=== PATIENT | female | born 1960 | race Two or more races ===

== ENCOUNTER 2016-10-25 12:59 | Emergency (ER) | payer MEDICAID ==
[~2016-10-25] VITALS: Ht 162.6 cm; Wt 58.1 kg
[2016-10-25] MEDS ORDERED: IPRATROPIUM BROM 0.5 MG/2.5ML INH SOL NEB ONE (13:15)
[2016-10-25] MEDS ORDERED: HYDROcodone-ACET 5/325MG TAB PO ONE (13:15)
[2016-10-25] MEDS ORDERED: methylPREDNISolone SOD SUCC 125 MG/2 ML VL IM ONE (13:15)
[2016-10-25] MEDS ORDERED: ALBUTEROL SULF 2.5 MG/0.5ML(0.5%) NEB SOLN NEB ONE (13:15)
[2016-10-25 13:36] LABS: Basophils # (auto) 0 uL; Basophils % (auto) 0.4 % (0.0-2.0); Eosinophils # (auto) 0.2 uL; Hematocrit 40.6 % (36.0-46.0); Hemoglobin 13.3 g/dL (12.2-16.2); Lymphocytes # (auto) 1.8 uL; Lymphocytes % (auto) 20.6 % (10.0-50.0); Mean Corpuscular Hemoglobin 29.3 pg (28.0-32.0); Mean Corpuscular Hgb Conc. 32.7 g/dL (32.0-36.0); Mean Corpuscular Volume 89.7 fL (80.0-100.0); Mean Platelet Volume 7.9 fL (7.4-10.4); Monocytes # (auto) 0.3 uL; Monocytes % (auto) 3.9 % (0.0-12.0); Neutrophils # (auto) 6.5 uL; Neutrophils % (auto) 73.1 % (37.0-80.0); Platelet Count (auto) 294 10^3/uL (140-450); Red Cell Distribution Width 13.9 % (11.6-16.0); White Blood Cell 8.9 10^3/uL (4.4-10.8)
[2016-10-25 14:01] LABS: Albumin 3.9 g/dL (3.4-5.0); BUN/Creatinine Ratio 18.8; Bilirubin, Total 0.5 mg/dL (0.2-1.0); Calcium 8.9 mg/dL (8.5-10.1); Potassium 3.8 mmol/L (3.5-5.1); Total Protein 6.5 g/dL (6.4-8.2)
[2016-10-25 15:45] LABS: Urine Bilirubin Negative (Negative); Urine Blood Negative /uL (Negative); Urine Color Yellow (Yellow); Urine Glucose Normal (Normal); Urine Ketone Negative (Negative); Urine Nitrite Negative (Negative); Urine RBC <1 /hpf (0 - 4); Urine Squamous Epithelial Cell FEW /hpf (<5); Urine Urobilinogen Normal (Negative)
[2016-10-25 16:52] VITALS: BP 110/63
== END 2016-10-25 16:53 | disposition home or self-care (01) ==
LOC: ER 13:01
DX: S29.011A Strain of muscle and tendon of front wall of thorax, initial encounter (principal); R51 Headache; M54.2 Cervicalgia; J44.9 Chronic obstructive pulmonary disease, unspecified; W01.198A Fall on same level from slipping, tripping and stumbling with subsequent striking against other object, initial encounter; Y93.89 Activity, other specified; Y99.8 Other external cause status; Y92.091 Bathroom in other non-institutional residence as the place of occurrence of the external cause
CPT/HCPCS: 36415; 70450; 71111; 72125; 80053; 81001; 85025; 94640; 96372; 99285; J2930

== ENCOUNTER → 2017-01-10 | Emergency (ER) | payer MEDICAID | END | disposition left against medical advice (07) | LOC: ER 04:02 | DX: R05 Cough (principal); Z53.21 Procedure and treatment not carried out due to patient leaving prior to being seen by health care provider ==

== ENCOUNTER 2022-10-04 16:46 | Emergency (ER) | payer MEDICAID ==
[~2022-10-04] VITALS: Ht 162.6 cm; Wt 53.1 kg
[2022-10-04 18:43] LABS: Basophils # (auto) 0.1 10 ^3/uL (0-0.2); Basophils % (auto) 0.8 % (0.0-2.0); Eosinophils # (auto) 0.3 10 ^3/uL (0-0.8); Eosinophils % (auto) 3.8 % (0.0-7.0); Hemoglobin 11.8 g/dL (12.2-16.2); Lymphocytes # (auto) 1.7 10 ^3/uL (0.4-5.4); Lymphocytes % (auto) 21.7 % (10.0-50.0); Mean Corpuscular Hemoglobin 28.6 pg (28.0-32.0); Mean Corpuscular Hgb Conc. 32.8 g/dL (32.0-36.0); Mean Corpuscular Volume 87.3 fL (80.0-100.0); Monocytes # (auto) 0.5 10 ^3/uL (0-1.3); Monocytes % (auto) 5.7 % (0.0-12.0); Neutrophils # (auto) 5.4 10 ^3/uL (1.6-8.6); Red Blood Cells 4.12 10^6/uL (4.0-5.20); Red Cell Distribution Width 16.6 % (11.8-14.3)
[2022-10-04 19:01] LABS: Albumin 3.4 g/dL (3.4-5.0); BUN/Creatinine Ratio 27.2; Calcium 9.8 mg/dL (8.5-10.1); Potassium 4.4 mmol/L (3.5-5.1)
[2022-10-04 19:04] LABS: Bilirubin, Total 0.4 mg/dL (0.2-1.0); Total Protein 7.3 g/dL (6.4-8.2)
[2022-10-04] MEDS ORDERED: CEPH-510 PO (21:06)
[2022-10-04] MEDS ORDERED: CLIN300C8 PO (21:06)
[2022-10-04 21:20] VITALS: BP 122/79
== END 2022-10-04 21:28 | disposition home or self-care (01) ==
LOC: ER 16:46
DX: L03.115 Cellulitis of right lower limb (principal); J44.9 Chronic obstructive pulmonary disease, unspecified
CPT/HCPCS: 36415; 80053; 85025; 87040

== ENCOUNTER 2023-01-05 10:38 | Emergency (ER) | payer MEDICAID ==
[~2023-01-05] VITALS: Ht 162.6 cm; Wt 50.0 kg
[~2023-01-05 10:38] MED LIST: CEPH-510 PO; CLIN300C8 PO
[2023-01-05 11:30] VITALS: BP 123/60
[2023-01-05] MEDS ORDERED: CEPH-510 PO (12:45)
== END 2023-01-05 12:54 | disposition home or self-care (01) ==
LOC: ER 10:38
DX: K94.20 Gastrostomy complication, unspecified (principal); J44.9 Chronic obstructive pulmonary disease, unspecified; Z48.00 Encounter for change or removal of nonsurgical wound dressing; Z88.6 Allergy status to analgesic agent; Z88.8 Allergy status to other drugs, medicaments and biological substances; Z90.49 Acquired absence of other specified parts of digestive tract

== ENCOUNTER 2023-07-09 04:45 | Emergency (ER) | payer OTHER, MEDICAID ==
[~2023-07-09] VITALS: Ht 162.6 cm; Wt 45.9 kg
[~2023-07-09 04:45] MED LIST changes: +CLIN300C70 PO; -CLIN300C8 PO
[2023-07-09] MEDS ORDERED: MORPHINE SULFATE INJ 2 MG/ml SYRG IM ONE (05:45)
[2023-07-09] MEDS ORDERED: ONDANSETRON HCL 4 MG/2 ML VIAL IM ONE (05:45)
[2023-07-09] MEDS ORDERED: GASTROGRAFIN 30 ML SOL ONE (05:52)
[2023-07-09 06:46] VITALS: TEMP 98; O2SAT 98
[2023-07-09 06:47] VITALS: BP 92/54; PULSE 61; RESP 17
== END 2023-07-09 06:47 | disposition home or self-care (01) ==
LOC: ER 04:45
DX: K21.9 Gastro-esophageal reflux disease without esophagitis (principal); E78.5 Hyperlipidemia, unspecified; J44.9 Chronic obstructive pulmonary disease, unspecified; Z43.1 Encounter for attention to gastrostomy; Z88.6 Allergy status to analgesic agent; Z88.8 Allergy status to other drugs, medicaments and biological substances; Z88.2 Allergy status to sulfonamides; Z91.011 Allergy to milk products
CPT/HCPCS: 43762; 74018; 96372; 99284; J2270; J2405; Q9963

== ENCOUNTER 2023-11-11 03:52 | Inpatient (IN) | payer BC, MEDICAID ==
[~2023-11-11] VITALS: Ht 162.6 cm; Wt 47.9 kg
[2023-11-11 04:53] VITALS: PULSE 69; RESP 13; O2SAT 95
[2023-11-11] MEDS ORDERED: SODIUM CHLORIDE 0.9% 1,000 ML IV ONE (05:10)
[2023-11-11] MEDS ORDERED: SODIUM CHLORIDE 0.9% 1,000 ML IVB ONE (07:15)
[2023-11-11 08:00] VITALS: PULSE 59; RESP 9; O2SAT 92
[2023-11-11] MEDS ORDERED: ACETAMINOPHEN IV 1000 MG/100ML (10MG/ML) IV ONE (08:00)
[2023-11-11 08:06] LABS: Basophils # (auto) 0.1 10 ^3/uL (0-0.2); Basophils % (auto) 0.8 % (0.0-2.0); Eosinophils # (auto) 0.7 10 ^3/uL (0-0.8); Eosinophils % (auto) 11.4 % (0.0-7.0); Hematocrit 32.3 % (36.0-46.0); Hemoglobin 10.4 g/dL (12.2-16.2); Lymphocytes # (auto) 1.2 10 ^3/uL (0.4-5.4); Lymphocytes % (auto) 19.5 % (10.0-50.0); Mean Corpuscular Hemoglobin 28.9 pg (28.0-32.0); Mean Corpuscular Hgb Conc. 32.2 g/dL (32.0-36.0); Mean Corpuscular Volume 89.8 fL (80.0-100.0); Monocytes # (auto) 0.3 10 ^3/uL (0-1.3); Monocytes % (auto) 5.1 % (0.0-12.0); Neutrophils % (auto) 63.2 % (37.0-80.0); Nucleated Red Blood Cells % 0.1 %; Red Cell Distribution Width 14.7 % (11.8-14.3); White Blood Cell 6.3 10^3/uL (4.4-10.8)
[2023-11-11 08:22] LABS: INR 1.04 (0.9-1.15); Partial Thromboplastin Time 26.4 SEC (24.5-34.5); Prothrombin Time 10.9 sec (9.3-11.8)
[2023-11-11 08:23] LABS: Alanine Aminotransferase 12 U/L (7-40); Albumin 3.3 g/dL (3.2-4.8); Alkaline Phosphatase 73 U/L (46-116); Anion Gap 4 (5-15); Aspartate Aminotransferase 30 U/L (13-40); BUN/Creatinine Ratio 16.5 (10.0-20.0); Bilirubin, Total 0.4 mg/dL (0.2-1.0); Blood Urea Nitrogen 18 mg/dL (9-23); Calcium 8.9 mg/dL (8.5-10.1); Carbon Dioxide 30 mmol/L (20-30); Chloride 106 mmol/L (98-107); Glucose 80 mg/dL (74-106); Potassium 3.6 mmol/L (3.5-5.1); Sodium 140 mmol/L (136-145); Total Protein 5.5 g/dL (5.7-8.2)
[2023-11-11 09:03] LABS: Magnesium 1.8 mg/dL (1.6-2.6)
[2023-11-11] MEDS: FUROSEMIDE 20 MG/2 ML VIAL IV ONE ×2 (09:23→10:54)
[2023-11-11] MEDS ORDERED: MORPHINE SULFATE INJ 2 MG/ml SYRG IV PRN (10:00)
[2023-11-11] MEDS ORDERED: DEXTROSE (50%) 50ML SYRG IV PRN (10:00)
[2023-11-11] MEDS ORDERED: MORPHINE SULFATE 4 MG/ML SYR/VIAL IV PRN (10:00)
[2023-11-11] MEDS ORDERED: NITROGLYCERIN 0.4 MG SL TAB SL PRN (10:00)
[2023-11-11] MEDS ORDERED: hydrALAZINE HCL 20 MG/ML VL IV PRN (10:00)
[2023-11-11] MEDS ORDERED: PROMETHAZINE HCL 25 MG/ML 1ML IV PRN (10:00)
[2023-11-11] MEDS: FAMOTIDINE (10MG/ML) 2ML VL IV SCH (11:30)
[2023-11-11] MEDS: D5W/SOD CHL 0.2% 1,000 ML IV SCH (11:30)
[2023-11-11 11:36] LABS: COVID19 ANTIGEN SOFIA FIA NEGATIVE (NEGATIVE)
[2023-11-11 11:37] LABS: Rapid Influenza A Negative (Negative); Rapid Influenza B Negative (Negative)
[2023-11-11] MEDS: ACCU-CHEK COMFORT CURVE STRIP VI SCH ×2 (12:56→18:18)
[2023-11-11] MEDS: InsuLIN REG 1unit/0.01ml Soln (100units/ml) SC SCH ×2 (12:56→18:00)
[2023-11-11 13:14] LABS: Urine Bacteria NONE SEEN /hpf (None Seen); Urine Blood Negative /uL (Negative); Urine Clarity Clear (Clear); Urine Protein, UAD Negative (Negative); Urine Specific Gravity 1.006 (1.001-1.035); Urine Urobilinogen Normal (Negative); Urine WBC None Seen /hpf (0 - 5)
[2023-11-11 13:16] LABS: Urine Color Yellow (Yellow)
[2023-11-11 13:25] LABS: Amphetamine Screen, Urine Neg (NEGATIVE); Barbiturate Scree,Urine Neg (NEGATIVE); Benzodiazephine Screen, Urine Neg (NEGATIVE); Cannabinoid Screen, Urine Neg (NEGATIVE); Cocaine Screen, Urine Neg (NEGATIVE); Opiate Scree,Urine Neg (NEGATIVE); Phencyclidine Screen, Urine Neg (NEGATIVE)
[2023-11-11] MEDS: MORPHINE SULFATE INJ 2 MG/ml SYRG IV PRN (15:57)
[2023-11-11 17:56] VITALS: BP 99/42; PULSE 60; RESP 17; TEMP 98.2; O2SAT 94
[2023-11-11] MEDS ORDERED: LEVO112T4 PO (18:36)
[2023-11-11] MEDS ORDERED: ATOR10TA52 PO (18:37)
[2023-11-11] MEDS ORDERED: AMIT10TA10 PO (18:38)
[2023-11-11] MEDS ORDERED: OXYC-963 PO (18:40)
[2023-11-11 22:00] VITALS: BP 101/36; PULSE 63; RESP 20; TEMP 98.2; O2SAT 92
[2023-11-11] MEDS: AMITRIPTYLINE HCL 25 MG TAB PO SCH (22:07)
[2023-11-12] VITALS (10 sets, daily range): BP systolic 94–113; BP diastolic 44–59; PULSE 64–81; RESP 16–20; TEMP 97.5–98.2; O2SAT 90–99
[2023-11-12] MEDS: ACCU-CHEK COMFORT CURVE STRIP VI SCH ×5 (01:59→23:58)
[2023-11-12] MEDS: InsuLIN REG 1unit/0.01ml Soln (100units/ml) SC SCH ×5 (02:02→23:58)
[2023-11-12] MEDS: D5W/SOD CHL 0.2% 1,000 ML IV SCH (06:11)
[2023-11-12] MEDS: MORPHINE SULFATE INJ 2 MG/ml SYRG IV PRN ×2 (08:41→14:42)
[2023-11-12] MEDS: LEVOTHYROXINE SODIUM 100 MCG/5 ML INJ IV SCH (10:19)
[2023-11-12] MEDS: FAMOTIDINE (10MG/ML) 2ML VL IV SCH (10:19)
[2023-11-12] MEDS ORDERED: ALBUTEROL SULF 2.5 MG/0.5ML(0.5%) NEB SOLN NEB PRN (11:00)
[2023-11-12] MEDS ORDERED: ALBUTEROL SULF 2.5 MG/0.5ML(0.5%) NEB SOLN ONE (11:02)
[2023-11-12] MEDS: AMITRIPTYLINE HCL 25 MG TAB PO SCH (22:28)
[2023-11-13] VITALS (7 sets, daily range): BP systolic 104–134; BP diastolic 35–66; PULSE 63–79; RESP 16–18; TEMP 97.6–97.7; O2SAT 93–99
[2023-11-13] MEDS: D5W/SOD CHL 0.2% 1,000 ML IV SCH (02:11)
[2023-11-13] MEDS: ACCU-CHEK COMFORT CURVE STRIP VI SCH ×3 (06:31→18:00)
[2023-11-13] MEDS: InsuLIN REG 1unit/0.01ml Soln (100units/ml) SC SCH ×3 (06:31→18:00)
[2023-11-13] MEDS: FAMOTIDINE (10MG/ML) 2ML VL IV SCH (10:10)
[2023-11-13] MEDS: LEVOTHYROXINE SODIUM 100 MCG/5 ML INJ IV SCH (10:10)
[2023-11-13] MEDS: MORPHINE SULFATE INJ 2 MG/ml SYRG IV PRN ×2 (10:19→16:26)
[2023-11-13] MEDS ORDERED: fentaNYL CITRATE 100 MCG/2 ML VL ONE (13:25)
[2023-11-13] MEDS ORDERED: MIDAZOLAM HCL 2MG/2ML 2ml VIAL (1mg/ml) ONE (13:26)
[2023-11-13] MEDS ORDERED: LIDOCAINE 2%HCL (LOCAL ANESTH.) INJ 20ML MDV ONE (13:42)
== END 2023-11-13 19:30 | disposition home or self-care (01) | DRG 312 ==
LOC: ER 03:52 → OVERFLOW 09:49 → CENTRAL 17:36
PROVIDERS: ADMIT Hospitalist; ATTEND Hospitalist
PROC: 0DPDXUZ Removal of Feeding Device from Lower Intestinal Tract, External Approach (ICD-10-PCS; principal; 2023-11-13)
PROC: 0DHA3UZ Insertion of Feeding Device into Jejunum, Percutaneous Approach (ICD-10-PCS; 2023-11-13)
DX: I95.2 Hypotension due to drugs (principal); K94.23 Gastrostomy malfunction; C14.0 Malignant neoplasm of pharynx, unspecified; E03.9 Hypothyroidism, unspecified; C02.9 Malignant neoplasm of tongue, unspecified; K21.9 Gastro-esophageal reflux disease without esophagitis; E78.5 Hyperlipidemia, unspecified; Z20.822 Contact with and (suspected) exposure to COVID-19; J44.9 Chronic obstructive pulmonary disease, unspecified; Z92.3 Personal history of irradiation; Z82.49 Family history of ischemic heart disease and other diseases of the circulatory system; Z88.2 Allergy status to sulfonamides; Z88.7 Allergy status to serum and vaccine; Z88.8 Allergy status to other drugs, medicaments and biological substances; Z91.011 Allergy to milk products; Z79.899 Other long term (current) drug therapy; Z90.49 Acquired absence of other specified parts of digestive tract; T45.1X5A Adverse effect of antineoplastic and immunosuppressive drugs, initial encounter
CPT/HCPCS: 36415; 70450; 71045; 75984; 80053; 80307; 81001; 82962; 83735; 83880; 84484; 85025; 85610; 85730; 87426; 87804; 93005; 94640; 97163; 99152; G0378; J0131; J2250; J3490

== ENCOUNTER 2024-07-20 08:56 | Inpatient (IN) | payer BC, MEDICAID ==
[2024-07-20] VITALS (10 sets, daily range): BP systolic 96–108; BP diastolic 40–45; PULSE 69–85; RESP 12–19; TEMP 98.1–98.3; O2SAT 92–98
[~2024-07-20] VITALS: Ht 157.5 cm; Wt 40.6 kg
[~2024-07-20 08:56] MED LIST changes: +AMIT-400 PO; +ATOR10TA52 PO; -CEPH-510 PO; -CLIN300C70 PO; +LEVO112T4 PO; +OXYC-963 PO
[2024-07-20] MEDS ORDERED: methylPREDNISolone SOD SUCC 125 MG/2 ML VL IM ONE (09:30)
[2024-07-20 10:25] LABS: Basophils # (auto) 0 10 ^3/uL (0-0.2); Basophils % (auto) 0.2 % (0.0-2.0); Eosinophils # (auto) 0.1 10 ^3/uL (0-0.8); Eosinophils % (auto) 1.1 % (0.0-7.0); Hematocrit 38.2 % (36.0-46.0); Mean Corpuscular Hemoglobin 30.6 pg (28.0-32.0); Mean Corpuscular Hgb Conc. 34.1 g/dL (32.0-36.0); Mean Corpuscular Volume 89.8 fL (80.0-100.0); Monocytes # (auto) 0.7 10 ^3/uL (0-1.3); Monocytes % (auto) 6.7 % (0.0-12.0); Neutrophils # (auto) 8.9 10 ^3/uL (1.6-8.6); Platelet Count (auto) 268 10^3/uL (140-450); Red Blood Cells 4.25 10^6/uL (4.0-5.20); Red Cell Distribution Width 16.3 % (11.8-14.3); White Blood Cell 10.7 10^3/uL (4.4-10.8)
[2024-07-20] MEDS: methylPREDNISolone SOD SUCC 125 MG/2 ML VL IV ONE (10:26)
[2024-07-20] MEDS: ALBUTEROL SULF 2.5 MG/0.5ML(0.5%) NEB SOLN NEB ONE (10:31)
[2024-07-20 10:47] LABS: Alanine Aminotransferase 12 U/L (7-40); Albumin 3.9 g/dL (3.2-4.8); Alkaline Phosphatase 81 U/L (46-116); Anion Gap 4 (5-15); Aspartate Aminotransferase 20 U/L (13-40); BUN/Creatinine Ratio 27.3 (10.0-20.0); Blood Urea Nitrogen 18 mg/dL (9-23); Calcium 9.6 mg/dL (8.7-10.4); Carbon Dioxide 23 mmol/L (20-31); Chloride 112 mmol/L (98-107); Glucose 100 mg/dL (74-106); Potassium 3.4 mmol/L (3.5-5.1); Sodium 139 mmol/L (136-145)
[2024-07-20 10:48] LABS: Bilirubin, Total 0.5 mg/dL (0.2-1.0); Total Protein 6.5 g/dL (5.7-8.2)
[2024-07-20] MEDS: AZITHROMYCIN 500MG/ 250ML 250 ML IV ONE (11:42)
[2024-07-20] MEDS ORDERED: MORPHINE SULFATE INJ 2 MG/ml SYRG IV PRN (12:30)
[2024-07-20] MEDS ORDERED: NITROGLYCERIN 0.4 MG SL TAB SL PRN (12:30)
[2024-07-20] MEDS: cefTRIAXone 1GM/50ML D5W 50 ML IV ONE (12:52)
[2024-07-20] MEDS: oxyCODONE ER 10 MG TAB PO ONE (12:52)
[2024-07-20] MEDS: methylPREDNISolone SOD SUCC 40 MG/ML VL IV SCH (18:44)
[2024-07-20] MEDS: ALBUTEROL SULF 2.5 MG/0.5ML(0.5%) NEB SOLN NEB SCH (18:48)
[2024-07-20] MEDS: IPRATROPIUM BROM 0.5 MG/2.5ML INH SOL NEB SCH (18:48)
[2024-07-20] MEDS: ACETYLCYSTEINE 20%(200MG/ML) SOL 4ML NEB SCH (18:48)
[2024-07-20] MEDS: AMITRIPTYLINE HCL 25 MG TAB PO SCH (21:46)
[2024-07-20] MEDS: BUDESONIDE (INHALATION) 0.5 MG/2 ML NEB NEB SCH (22:04)
[2024-07-21] VITALS (18 sets, daily range): BP systolic 87–106; BP diastolic 38–62; PULSE 61–89; RESP 16–20; TEMP 97.4–98.2; O2SAT 93–100
[2024-07-21] MEDS: LEVOTHYROXINE SODIUM 112 MCG TAB PO SCH (05:51)
[2024-07-21] MEDS: FAMOTIDINE 20 MG TAB PO SCH (10:10)
[2024-07-21] MEDS: ATORVASTATIN 20 MG TAB PO SCH (10:10)
[2024-07-21] MEDS: ENOXAPARIN SOD 40 MG/0.4 ML SYRINGE SC SCH (10:14)
[2024-07-21] MEDS: cefTRIAXone 1GM/50ML D5W 50 ML IV SCH (10:23)
[2024-07-21] MEDS: ONDANSETRON HCL 4 MG/2 ML VIAL IV PRN (12:59)
[2024-07-21] MEDS ORDERED: IOHEXOL 350 MG/ML 100ML IJ ONE (14:17)
[2024-07-21] MEDS: SODIUM CHLORIDE 0.9% 1,000 ML IV SCH (16:14)
[2024-07-21] MEDS ORDERED: AZITHROMYCIN 250 MG TAB PO ONE (16:15)
[2024-07-21] MEDS: oxyCODONE HCL 5MG TAB PO PRN (16:23)
[2024-07-21] MEDS: DOXYCYCLINE 100 MG TAB/CAP PO SCH (16:42)
[2024-07-21] MEDS: AMITRIPTYLINE HCL 25 MG TAB PO SCH (22:44)
[2024-07-22] VITALS (16 sets, daily range): BP systolic 97–130; BP diastolic 44–82; PULSE 52–81; RESP 14–18; TEMP 97.4–98; O2SAT 94–100
[2024-07-22] MEDS: MORPHINE SULFATE INJ 2 MG/ml SYRG IV PRN (04:21)
[2024-07-22 07:36] LABS: Basophils # (auto) 0 10 ^3/uL (0-0.2); Eosinophils # (auto) 0 10 ^3/uL (0-0.8); Hematocrit 35.7 % (36.0-46.0); Hemoglobin 12.1 g/dL (12.2-16.2); Lymphocytes # (auto) 1.4 10 ^3/uL (0.4-5.4); Lymphocytes % (auto) 10.5 % (10.0-50.0); Mean Corpuscular Hemoglobin 30.5 pg (28.0-32.0); Mean Corpuscular Hgb Conc. 33.8 g/dL (32.0-36.0); Mean Corpuscular Volume 90.3 fL (80.0-100.0); Monocytes # (auto) 0.3 10 ^3/uL (0-1.3); Neutrophils # (auto) 11.8 10 ^3/uL (1.6-8.6); Neutrophils % (auto) 87.5 % (37.0-80.0); Platelet Count (auto) 309 10^3/uL (140-450); Red Blood Cells 3.95 10^6/uL (4.0-5.20); Red Cell Distribution Width 16.6 % (11.8-14.3); White Blood Cell 13.5 10^3/uL (4.4-10.8)
[2024-07-22 07:48] LABS: Calcium 9.8 mg/dL (8.7-10.4); Chloride 111 mmol/L (98-107); Potassium 3.7 mmol/L (3.5-5.1); Sodium 140 mmol/L (136-145)
[2024-07-22 07:49] LABS: Anion Gap 3 (5-15); Carbon Dioxide 26 mmol/L (20-31)
[2024-07-22 07:54] LABS: BUN/Creatinine Ratio 31.7 (10.0-20.0); Blood Urea Nitrogen 19 mg/dL (9-23); Glucose 117 mg/dL (74-106)
[2024-07-22 07:55] LABS: Magnesium 2.1 mg/dL (1.6-2.6)
[2024-07-22] MEDS ORDERED: AZITHROMYCIN 250 MG TAB PO SCH (10:00)
[2024-07-23] VITALS (15 sets, daily range): BP systolic 91–128; BP diastolic 50–69; PULSE 54–76; RESP 16–20; TEMP 97.6–98.3; O2SAT 95–100
[2024-07-23] MEDS: ACETYLCYSTEINE 20%(200MG/ML) SOL 4ML NEB SCH (06:44)
[2024-07-23 23:28] LABS: Urine Bacteria None Seen /hpf (None Seen); Urine WBC None Seen /hpf (0 - 5)
[2024-07-23 23:49] LABS: Urine Blood Negative /uL (Negative); Urine Clarity Clear (Clear); Urine Color Light-Yellow (Yellow); Urine Protein, UAD Negative (Negative); Urine Specific Gravity 1.012 (1.001-1.035); Urine Urobilinogen Normal (Negative)
[2024-07-24] VITALS (14 sets, daily range): BP systolic 106–170; BP diastolic 52–101; PULSE 54–75; RESP 16–19; TEMP 96.9–98.4; O2SAT 96–100
[2024-07-24 07:02] LABS: INR 1.1 (0.9-1.15); Partial Thromboplastin Time 24.6 SEC (24.5-34.5); Prothrombin Time 11.6 sec (9.3-11.8)
[2024-07-24] MEDS ORDERED: FLUMAZENIL 0.1 MG/ML INJ 10ML MDV IV ONE (08:20)
[2024-07-24] MEDS ORDERED: diphenhdrAMINE HCL 50 MG/1 ML VL ONE (08:20)
[2024-07-24] MEDS ORDERED: NALOXONE HCL 0.4 MG/ML VIAL ONE (08:20)
[2024-07-24] MEDS ORDERED: SODIUM CHLORIDE LOCK 10 ML ONE (08:22)
[2024-07-24] MEDS ORDERED: LIDOCAINE 2% JELLY 11ml (GLYDO) ONE (08:23)
[2024-07-24] MEDS ORDERED: LIDOCAINE 2%HCL (LOCAL ANESTH.) INJ 20ML MDV ONE (08:23)
[2024-07-24] MEDS ORDERED: EPINEPHrine HCL 1 MG/1 ML AMP ONE (08:24)
[2024-07-24] MEDS ORDERED: GLYCOPYRROLATE 0.2 MG/ML 1ML VIAL ONE (08:25)
[2024-07-24] MEDS: fentaNYL CITRATE 100 MCG/2 ML VL ONE (08:55)
[2024-07-24] MEDS: MIDAZOLAM HCL 5 MG/ML-1ML VIAL ONE (08:55)
[2024-07-25] VITALS (13 sets, daily range): BP systolic 97–123; BP diastolic 47–66; PULSE 59–76; RESP 16–18; TEMP 97.5–98.8; O2SAT 93–100
[2024-07-25] MEDS ORDERED: IPRA0.00 IN (13:15)
[2024-07-25] MEDS ORDERED: PRED20TA2 PO (13:15)
[2024-07-25] MEDS ORDERED: DOXY100C79 PO (13:15)
== END 2024-07-25 20:30 | disposition home health service (06) | DRG 177 ==
LOC: ER 08:56 → OVERFLOW 12:30 → EAST 15:36
PROVIDERS: ADMIT Hospitalist; ATTEND Hospitalist
PROC: 0BJ08ZZ Inspection of Tracheobronchial Tree, Via Natural or Artificial Opening Endoscopic (ICD-10-PCS; 2024-07-24)
PROC: 0B9D8ZX Drainage of Right Middle Lung Lobe, Via Natural or Artificial Opening Endoscopic, Diagnostic (ICD-10-PCS; principal; 2024-07-24 08:52)
DX: J69.0 Pneumonitis due to inhalation of food and vomit (principal); J96.01 Acute respiratory failure with hypoxia; R64 Cachexia; Z68.1 Body mass index [BMI] 19.9 or less, adult; I31.39 Other pericardial effusion (noninflammatory); J43.9 Emphysema, unspecified; E87.6 Hypokalemia; K21.9 Gastro-esophageal reflux disease without esophagitis; J84.10 Pulmonary fibrosis, unspecified; E78.5 Hyperlipidemia, unspecified; D64.9 Anemia, unspecified; E03.9 Hypothyroidism, unspecified; Z90.49 Acquired absence of other specified parts of digestive tract; Z82.49 Family history of ischemic heart disease and other diseases of the circulatory system; Z88.2 Allergy status to sulfonamides; Z88.8 Allergy status to other drugs, medicaments and biological substances; Z88.1 Allergy status to other antibiotic agents; Z91.011 Allergy to milk products; Z79.899 Other long term (current) drug therapy; Z85.810 Personal history of malignant neoplasm of tongue; Z79.891 Long term (current) use of opiate analgesic; Z92.3 Personal history of irradiation
CPT/HCPCS: 31622; 31624; 36415; 71045; 71275; 80048; 80053; 81001; 83735; 84484; 85025; 85379; 85610; 85730; 86850; 86900; 86901; 87070; 87077; 87186; 87205; 92610; 93005; 93306; 94640; 96365; 96366; 96368; 96375; 97110; 97116; 97163; 97530; G0378; J0171; J1642; J2250; J2405